=== PATIENT | male | born 1960 | race Caucasian/White ===

== ENCOUNTER 2022-06-06 10:10 | Outpatient (REF) | payer OTHER, SELFPAY ==
[2022-06-06 12:15] LABS: Alanine Aminotransferase 17 U/L (0-40); Albumin Level 4.5 g/dL (3.5-5.0); Alkaline Phosphatase 99 U/L (39-117); Anion Gap 15 (12-20); Aspartate Amino Transferase 21 U/L (5-37); Bilirubin Direct 0.2 mg/dL (0.0-0.5); Bilirubin Total 0.3 mg/dL (0.0-1.0); Blood Urea Nitrogen 15 mg/dL (9-16); Calcium 9.6 mg/dL (8.4-10.2); Carbon Dioxide 27 mmol/L (22-29); Chloride 102 mmol/L (96-108); Estimated Glomerular Filt Rate > 60; Glucose Random 72 mg/dL (60-115); Potassium 4.7 mmol/L (3.3-5.1); Sodium 139 mmol/L (135-145); Total Protein 7.1 g/dL (6.5-8.0)
[2022-06-06 12:50] LABS: Thyroid Stimulating Hormone 1.52 uIU/mL (0.32-4.0)
[2022-06-06 14:26] LABS: Folate > 20.0 ng/mL (> or = 4.0); Vitamin B12 696 pg/mL (200-900)
[2022-06-15 07:33] LABS: Vitamin B1 41 nmol/L (8-30)
== END 2022-06-06 10:11 | disposition home or self-care (01) ==
LOC: HO.LAB 10:10
PROVIDERS: PCP Internal Medicine; Visit Provider Psychiatry & Neurology Neurology
DX: G31.84 Mild cognitive impairment of uncertain or unknown etiology (principal)
CPT/HCPCS: 36415; 80048; 80076; 82607; 82746; 84425; 84443

== ENCOUNTER 2022-06-20 08:59 | Outpatient (REF) | payer OTHER, SELFPAY ==
--- NOTE | ~2022-06-20 | MR_ITS ---
EXAMINATION: MR BRAIN WITHOUT CONTRAST CLINICAL INFORMATION: Multi-infarct dementia. Microvascular disease. COMPARISON: None available. TECHNIQUE: MRI of the brain was obtained using routine sequences without contrast. FINDINGS: No focal restricted diffusion is demonstrated to suggest acute or subacute cerebral ischemia. No evidence of acute or chronic hemorrhagic products on heme-sensitive imaging. Mild basal ganglia mineralization. Scattered periventricular and deep white matter T2 FLAIR hyperintensities consistent with mild underlying microangiopathy. Proportional prominence of the ventricles and sulcal spaces without evidence of obstructive hydrocephalus. No abnormal mass effect. No midline shift. Normal appearance of the pituitary gland. Normal positioning of the cerebellar tonsils. Normal arterial and venous vascular flow voids are present. Normal, homogeneous marrow signal. Mild mucosal thickening of the paranasal sinuses. Moderate leftward nasal septal deviation. No signal abnormalities within the mastoids. MR/MR head/brain wo con IMPRESSION: 1. No acute intracranial abnormalities. 2. Mild underlying microangiopathy and generalized cerebral volume loss.
== END 2022-06-20 09:00 | disposition home or self-care (01) ==
LOC: HO.MRI 08:59
PROVIDERS: Visit Provider Psychiatry & Neurology Neurology
DX: G31.84 Mild cognitive impairment of uncertain or unknown etiology (principal)
CPT/HCPCS: 70551

== ENCOUNTER 2025-04-26 09:01 | Outpatient (AMB) | payer OTHER, SELFPAY ==
--- NOTE | 2025-04-26 09:07 | MHC.OFFVIS ---
Vital Signs 04/26/25 09:09 Height 5 ft 10 in Intake Visit Reasons: insomnia/cluster COFFEY Allergies No Known Allergies Allergy (Verified 04/26/25 09:34) Medication List - Last Reconciled 04/26/25 by Kristen Montero CNP loratadine (Claritin) 10 mg PO DAILY multivitamin 1 tab PO DAILY prednisone mg PO sumatriptan succinate take 1 tab at onset of headache; if no relief, may repeat 1 tab after at least 2 hrs; max = 2 tabs/24 hrs PO zolpidem 10 mg PO BEDTIME PRN HPI Comments Details: Headaches are okay. Last cluster was a few months ago, prednisone helps when clusters occur. Rarely uses sumatriptan, will use Tylenol as needed which helps most of the time. Sleep was usually okay with zolpidem. Has some trouble sleeping when it is hot out. Cut back on smoking. Trying to cut back on drinking, drinking about 6 beers/day. More anxious when drinking. Saw PCP last week and was referred to psychiatrist. Trouble sleeping began when he decreased alcohol intake to about 5-6 beers/day. History of headaches since 2011 that occur in clusters lasting 1-2 weeks during which time he will have daily headaches which are bifrontal and temporal, vary in intensity from moderate to severe, without any lacrimation or redness of the eyes or nasal congestion. Cluster headaches are controlled with prednisone and uses prednisone as needed for cluster headaches. He has history of chronic sinus problems. He gets 4-6 clusters every year with one to 2 months in between. No triggers have been identified. Short-term memory is not as sharp since 2020. 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 In the past his alcohol consumption was much greater. [facility] Medical History Alcohol abuse Right testicular cancer COPD (chronic obstructive pulmonary disease) Surgical History History of orchiectomy Social History (Updated 04/25/25 @ 12:24 by Anjana Ferrera MA) Alcohol intake: current Review of Systems Const Denies fatigue, Reports headache(s) and Denies snoring Eyes Denies loss of vision ENT Reports Normal hearing present and Reports headache(s) Card Denies chest pain at rest, Denies chest pain with activity, Denies syncope, Denies leg edema, Denies palpitations, Denies dyspnea and Denies dyspnea on exertion Resp Denies cough, Denies dyspnea, Denies dyspnea on exertion and Denies snoring GI Denies abdominal pain, Denies constipation, Denies heartburn, Denies diarrhea, Denies nausea and Denies vomiting Denies urinary frequency, Denies urinary incontinence and Denies urinary urgency Musc Denies abnormal gait, Denies back pain, Denies myalgias, Denies arthralgias, Denies numbness, Denies stiffness and Denies tingling Neuro Reports Normal hearing present, Denies Abnormal speech present, Denies abnormal gait, Denies syncope, Reports headache(s), Denies loss of vision, Reports memory loss, Denies numbness and Denies tingling Psych Reports anxiety and Reports memory loss Endo Denies fatigue and Denies palpitations Physical Exam Const General: no acute distress, alert and awake Orientation/consciousness: oriented to person, oriented to place and oriented to time Eyes Pupils: Equal, round and reactive pupils present Resp Effort & Inspection: normal respiratory effort Auscultation: clear to auscultation bilaterally Cardio Rate: regular rate Rhythm: regular rhythm Heart sounds: S1 normal heart sound present and S2 normal heart sound present Neuro Other: Extrapyramidal System: No tremor or rigidity. Normal facial expressions. No bradykinesia. No bradyphrenia. Normal arm swing amd posture. No propulsion or retropulsion. General: oriented to person, oriented to place, oriented to time, moves all extremities, no focal motor deficits, normal sensation to monofilament and deep tendon reflexes 2+ bilaterally Cranial nerves: Yes CN's II-XII intact bilaterally, Yes Facial sensation intact/muscles of mastication intact, Yes Equal, round and reactive pupils present, Yes Bilaterally intact EOM present, Yes Normal facial strength present, Yes Midline tongue present, Yes Symmetric palate elevation present, Yes Normal hearing present and Yes Ability to bilaterally elevate shoulders present Cognition (Neuro): normal cognition Speech: No Abnormal speech present Gait exam (Neuro): Normal gait present Motor exam (neuro): 5/5 motor strength present throughout, Pronator motor function not present, no tremor noted, Motor fasciculations not present and Normal motor muscle tone present throughout Sensory Exam: other (Normal light touch, temperature, pinprick, vibration, and joint-position) Plantar Reflex Responses: downgoing: bilateral Coordination: [id number] test normal, [id number] test normal, Romberg test negative, rapid alternating movements of the distal upper extremity normal and rapid alternating movements of the distal lower extremity normal Extrem General: No edema Psych Mental Status: mental status grossly normal Affect: normal affect Attitude: cooperative Assessment & Plan Assessment & Plan (1) Cluster headache: Code(s): G44.009 - Cluster headache syndrome, unspecified, not intractable Category: Medical Qualifiers: Headache chronicity pattern: chronic headache Intractability: not intractable Qualified Code(s): G44.029 - Chronic cluster headache, not intractable Plan: Continue prednisone 20mg 3 tabs x3 days, 2 tabs x2 days, 1 tab x2 days as needed for cluster headache Continue sumatriptan 100mg as needed for cluster headache (2) Insomnia: Code(s): G47.00 - Insomnia, unspecified Category: Medical Qualifiers: Insomnia type: unspecified Qualified Code(s): G47.00 - Insomnia, unspecified Plan: Continue zolpidem 10mg at bedtime Plan . Coding Level of Care Code Est Pt Level 4 (05464) Diagnoses Chronic cluster headache, not intractable G44.029 Headache chronicity pattern: chronic headache Intractability: not intractable Insomnia, unspecified type G47.00 Insomnia type: unspecified
--- OUTSIDE RECORDS SUMMARY | 2025-04-26 09:26 | XMS_ITS | Clinical Summary ---
Author Organization [facility] Address [address] [place] [id number] Care Team Providers Care Tar Distributor Operator Name Role Phone Leonel Escalante MD Primary Care Provider [phone] Allergies Active Allergy Reactions Criticality Noted Date Comments Seasonal 09/03/2017 Medications Medication Sig Dispensed Refills Start Date End Date Status loratadine (CLARITIN) 10 MG tablet Take 10 mg by mouth as needed for allergies. 0 Active albuterol (PROVENTIL HFA;VENTOLIN HFA) 108 (90 Base) MCG/ACT inhaler INL 2 PFS ITL QID PRF COUGH OR WHZ OR SOB 0 10/21/2019 Active FLOVENT HFA 110 MCG/ACT inhaler INL 1 PUFF ITL BID 0 10/21/2019 A ctive famotidine (PEPCID) 20 MG tablet Take 20 mg by mouth 2 (two) times a day. 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 Overview: Overview: Right inguinal orchiectomy, 08/15/2016 Alcohol abuse 05/10/2016 Pancreatic pseudocyst 04/07/2014 Pancreatitis 04/07/2014 Tobacco use disorder 04/07/2014 Family History Medical History Relation Name Comments Cancer Mother breast Cancer Sister breast Relation Name Status Comments Mother Sister Social History Tobacco Use Types Packs/Day Years Used Date Smoking Tobacco: Former Smokeless Tobacco: Current Alcohol Use Standard Drinks/Week Comments Yes 0 (1 standard drink = 0.6 oz pur e alcohol) Sex and Gender Information Value Date Recorded Sex Assigned at Not on file Gender Identity Not on file Sexual Orientation Not on file Last Filed Vital Signs Vital Sign Reading Time Taken Comments Blood Pressure 144/82 06/28/2020 10:09 AM EDT Pulse 75 06/28/2020 10:09 AM EDT Temperature 36.8 C (98.2 F) 06/28/2020 10:09 AM EDT Respiratory Rate - - Oxygen Saturation - - Inhaled Oxygen Concentration - - Weight 61.7 kg (136 lb) 06/28/2020 10:09 AM EDT Height 177.8 cm (5' 10 ) 06/28/2020 10:09 AM EDT Body Mass Index 19.51 06/28/2020 10:09 AM EDT Plan of Treatment Health Maintenance Due Date Last Done Comments Hepatitis C Screening 1961 COVID-19 Vaccine (#1) 1966 Pneumococcal Vaccine (1 of 2 - PCV) 1967 Depression Screening 1973 Preventative Health Evaluation 1979 Shingrix-Zoster Vaccine (1 o f 2) 1980 Colon Cancer Screening (Colonoscopy) 2006 Influenza Vaccine (Season Ended) 2025 07/31/2020, 07/31/2016 DTap / Tdap / Td (2 - Td or Tdap) 05/22/2026 05/22/2016 RSV Adult > 60+ Yrs or (1 - 1-dose 75+ series) 2036 Hepatitis B Vaccines Aged Out No long er eligible based on patient's age to complete this topic RSV Ped < 20 months Aged Out No longe r eligible based on patient's age to complete this topic Care Teams Tar Distributor Operator Relationship Specialty Start Date End Date Leonel Escalante MD PCP - General Internal Medicine 06/28/20
--- OUTSIDE RECORDS SUMMARY | 2025-04-26 09:26 | XMS_ITS ---
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 V 28) 09/08/2017 Overview (10/25/2024): Right inguinal orchiectomy, 08/15/2016 Testicular seminoma (CMS/HCC V24, CMS/HCC V28) 0 02/24/2017 Overview (10/25/2024): Right inguinal orchiectomy, 08/15/2016 Alcohol abuse 05/10/2016 Pancreatic pseudocyst 04/07/2014 Pancreatitis 04/07/2014 Tobacco use disorder 04/07/2014 Current Oncology Plans No current plan information found. Past Plans No past plan information found. Radiation Treatments * No radiation treatments are documented for this patient in [facility]. Treatments may have been administered in another system. Lifetime Dose Tracking * Chemical Lifetime Dose Automatic Entry Manual Entr y Radiation (DLP) 186.68 mGy-cm 186.68 mGy-cm 0 mGy-cm CTDIvol 4.83 mGy 4.83 mGy 0 mGy
== END 2025-04-26 09:25 | disposition home or self-care (01) ==
LOC: HO.HSM 09:02
PROVIDERS: PCP Internal Medicine; Visit Provider Registered Nurse
DX: G44.029 Chronic cluster headache, not intractable (principal); G47.00 Insomnia, unspecified
CPT/HCPCS: 99214

== ENCOUNTER → 2025-04-26 09:01 | Outpatient (BNVA) | payer OTHER, SELFPAY | PROVIDERS: PCP Internal Medicine; Visit Provider Registered Nurse | DX: G44.009 Cluster headache syndrome, unspecified, not intractable (principal); G47.00 Insomnia, unspecified | CPT/HCPCS: 99212 ==